=== PATIENT | male | born 1995 | race Caucasian/White ===

== ENCOUNTER 2017-11-01 19:52 | Emergency (ER) | payer SELFPAY ==
--- NOTE | 2017-11-01 20:33 | RAD ---
EXAM DESCRIPTION: Hand,Right 3 Views CLINICAL HISTORY: 22 years Male, suspect boxers fx COMPARISON: None. FINDINGS: There is a nondisplaced fracture of the distal fifth metacarpal, with minimal dorsal and ulnar apex angulation, with probable overlying soft tissue swelling. No other acute fracture or dislocation or destructive bony lesion is identified. Joint spaces appear maintained as visualized. IMPRESSION: Distal fifth metacarpal fracture. Electronically signed by: Luis Easton MD 11/01/2017 8:32 PM [facility]
--- NOTE | 2017-11-01 21:14 | ED.PDOC ---
History of Present Illness - General Chief Complaint: Upper Extremity Injury Stated Complaint: right hand pain Time Seen by Provider: 11/01/17 20:00 Source: patient Exam Limitations: no limitations - History of Present Illness Initial Comments: The patient is a 22-year-old male presenting to the emergency room secondary to pain in his lateral right hand after punching a table top. He has pain over the fifth metacarpal. Alignment looks good. There does not appear to be significant shortening. There is some swelling. There appears to be neurovascularly intact. No crepitus. Timing/Duration: 4-6 hours Severity: moderate Improving Factors: nothing Worsening Factors: movement Associated Symptoms: denies symptoms Review of Systems - Review of Systems Constitutional: States: no symptoms reported EENTM: States: no symptoms reported Respiratory: States: no symptoms reported Cardiology: States: no symptoms reported Gastrointestinal/Abdominal: States: no symptoms reported Genitourinary: States: no symptoms reported Musculoskeletal: States: see HPI Skin: States: no symptoms reported Neurological: States: no symptoms reported Endocrine: States: no symptoms reported All other Systems: No Change from Baseline Past Medical History (General) - Patient Medical History Hx Asthma: No Hx Hypertension: No Hx Renal Disease: No Surgical History: no surgical history - Vaccination History Hx Tetanus, Diphtheria Vaccination: No Hx Influenza Vaccination: No Hx Pneumococcal Vaccination: No Immunizations Up to Date: No - Social History Hx Tobacco Use: Yes Hx Alcohol Use: Yes - occ Family Medical History - Family History Mother Family History: Unknown Physical Exam - Physical Exam General Appearance: Alert, Comfortable, No apparent distress Eye Exam: bilateral normal Ears, Nose, Throat: hearing grossly normal, normal pharynx Neck: full range of motion, supple Respiratory: no respiratory distress, no accessory muscle use Cardiovascular/Chest: normal peripheral pulses, no edema Peripheral Pulses: radial,right: 2+, radial,left: 2+ Rectal Exam: deferred Back Exam: normal inspection Extremity: no pedal edema, normal capillary refill, other - ee history of present illness Neurologic: diagnostic radiologist II-XII nml as tested, no motor/sensory deficits, alert, normal mood/affect, oriented x 3 Skin Exam: normal color Comments: Vital Signs - 24 hr 11/01/17 20:05 Temperature 98.1 F Pulse Rate [ 76 left] Respiratory 18 Rate Blood Pressure 136/78 [left] O2 Sat by Pulse 99 Oximetry Progress - Progress Progress: 11/01/17 21:13 the patient is a 22-year-old male presenting to the emergency room secondary to what appears to be a minimally displaced boxer's fracture of the distal fifth metacarpal. An ulnar gutter angulated splint was placed. Motrin and Tylenol can be used for discomfort. He needs to try and use a splint for at least 6 weeks. He appears to be neurovascularly intact. ER warnings were given for any significant worsening. Departure - Departure Clinical Impression: Closed boxer's fracture Qualifiers: Encounter type: initial encounter Qualified Code(s): S62.339A - Displaced fracture of neck of unspecified metacarpal bone, initial encounter for closed fracture Disposition: Discharge to Home or Self Care Condition: Fair Departure Forms: ED Discharge - Pt. Copy, Patient Portal Self Enrollment Instructions: DI for Boxer's Fracture Diet: regular diet Activity: no pushing/pulling with affected limb Additional Instructions: the patient is a 22-year-old male presenting to the emergency room secondary to what appears to be a minimally displaced boxer's fracture of the distal fifth metacarpal. An ulnar gutter angulated splint was placed. Motrin and Tylenol can be used for discomfort. He needs to try and use a splint for at least 6 weeks. He appears to be neurovascularly intact. ER warnings were given for any significant worsening.
[2017-11-01 21:46] VITALS: BP 129/85; TEMP 98.2; O2SAT 98
== END 2017-11-01 21:25 | disposition home or self-care (01) ==
LOC: ER 19:52
DX: S62.396A Other fracture of fifth metacarpal bone, right hand, initial encounter for closed fracture (principal); W22.03XA Walked into furniture, initial encounter; Y92.9 Unspecified place or not applicable

== ENCOUNTER 2019-04-23 | Emergency (ER) | payer SELFPAY ==
--- NOTE | 2019-04-23 08:16 | ED.PDOC ---
History of Present Illness - General Chief Complaint: Bite: Animal/Insect/Human Stated Complaint: BEE STING NOT GETTING BETTER Time Seen by Provider: 04/23/19 08:02 Source: patient Exam Limitations: no limitations - History of Present Illness Initial Comments: BEE STING TO THE RIGHT FOURTH TOE, ONSET 4 DAYS AGO. HAS BEEN TAKING BENADRYL BUT CONTINUES TO BE SWOLLEN. DENIES FEVER. Timing/Duration: other - 4 DAYS Severity: mild Improving Factors: nothing Worsening Factors: nothing Associated Symptoms: denies symptoms Allergies/Adverse Reactions: Allergies NO KNOWN ALLERGY Allergy (Verified 04/23/19 07:59) Home Medications: Ambulatory Orders Prednisone 20 mg PO DAILY 5 Days tab 04/23/19 Triamcinolone 0.1% Oint [Kenalog 0.1% Ointment] 15 gm TOP BID #1 tube 04/23/19 Review of Systems - Review of Systems Constitutional: States: see HPI EENTM: States: no symptoms reported Respiratory: States: no symptoms reported Cardiology: States: no symptoms reported Gastrointestinal/Abdominal: States: no symptoms reported Genitourinary: States: no symptoms reported Skin: States: other - SWOLLEN FOURTH TOE WITH MILD REDNESS Past Medical History (General) - Patient Medical History Hx Asthma: No Hx Hypertension: No Hx Renal Disease: No Hx Cancer: No Hx Hepatitis C: No Surgical History: no surgical history - Vaccination History Hx Tetanus, Diphtheria Vaccination: No Hx Influenza Vaccination: No Hx Pneumococcal Vaccination: No Immunizations Up to Date: No - Social History Hx Tobacco Use: Yes Hx Alcohol Use: Yes - OCC Hx Substance Use: No Hx Substance Use Treatment: No Hx Depression: No Family Medical History - Family History Mother Family History: Unknown Physical Exam - Physical Exam General Appearance: Alert, Well Developed, Well Groomed, Well Hydrated, Well Nourished Eye Exam: bilateral normal Ears, Nose, Throat: hearing grossly normal Neck: non-tender Respiratory: chest non-tender Cardiovascular/Chest: normal peripheral pulses Peripheral Pulses: radial,right: 2+, radial,left: 2+ Gastrointestinal/Abdominal: normal bowel sounds, non tender, soft, no organomegaly Rectal Exam: deferred Back Exam: normal inspection Extremity: other - THE RIGHT FOURTH TOE HAS SOME DORSAL SWELLING, GOOD ROM. Departure - Departure Clinical Impression: Insect bites Qualifiers: Site of insect bite: foot Laterality: right Time of Disposition: :17 Disposition: Discharge to Home or Self Care Condition: Good Departure Forms: ED Discharge - Pt. Copy, Patient Portal Self Enrollment Instructions: DI for Animal Bites, DI for Insect Bites and Stings Diet: resume usual diet Prescriptions: Prednisone 20 mg PO DAILY 5 Days tab Triamcinolone 0.1% Oint [Kenalog 0.1% Ointment] 15 gm TOP BID #1 tube Home Medications: Ambulatory Orders Prednisone 20 mg PO DAILY 5 Days tab 04/23/19 Triamcinolone 0.1% Oint [Kenalog 0.1% Ointment] 15 gm TOP BID #1 tube 04/23/19
== END 2019-04-23 08:31 | disposition home or self-care (01) ==